=== PATIENT | male | born 1980 | race Caucasian/White ===

== ENCOUNTER 2019-09-11 19:25 | Emergency (ER) | payer SELFPAY ==
[2019-09-11 19:28] VITALS: BP 141/91; PULSE 110; RESP 18; TEMP 36.4; O2SAT 96; BMI 26.7
--- NOTE | 2019-09-11 19:41 | ED.DCSUM_ITS ---
History of Present Illness Chief Complaint: Back Informant: Patient Onset: Month(s) - 1 month Context: Gradual Onset Current Severity: Mild Maximum Severity: Moderate Narrative: Patient present secondary to back pain with radiation down his right leg. Approximately 10 years ago he had an L4-5 fusion by Prasanna Milan at [facility]. Patient states he will have intermittent flares of pain. Approximate 1 month ago he noted some back tightness after adjusting his position in a chair. There was no fall or direct injury. Since that time he continues to have symptoms of sciatica with pain rating down the lateral thigh to his ankle. He has had some numbness and tingling. He states his been taking Tylenol intermittently. He does not have a primary care physician. He lives in [place] and is here visiting his family. - Past Medical History (1) Fusion of lumbar spine Status: Chronic Past Medical History - Allergies and Home Meds Allergies/Adverse Reactions: Allergies amoxicillin Allergy (Verified 09/11/19 19:27) Rash Penicillins [PCN] Allergy (Verified 09/11/19 19:27) Rash Sulfa (Sulfonamide Antibiotics) Allergy (Verified 09/11/19 19:27) Rash Primary Care Physician: Care Physician,No Primary [Primary Care Provider] - Prior records reviewed: Yes Smoking Status: Current every day smoker Review of Systems General: Denies: Chills, Fever Eyes: Denies: Visual changes - bilaterally ENT: Denies: Bilateral ear pain Cardiovascular: Denies: Chest pain Respiratory: Denies: Dyspnea, Cough Gastrointestinal: Denies: Abdominal pain, Nausea, Vomiting, Diarrhea Musculoskeletal: Reports: Back pain, Extremity Pain Neurological: Reports: Parasthesia. Denies: Headache, Weakness Endocrine: Denies: Polyuria, Polydipsia Hematologic: Denies: Easy bruising Allergy: Denies: Uticaria Physical Exam Vital Signs/Narrative: Vital Signs Temp Pulse Resp BP Pulse Ox 09/11/19 19:28 97.5 F L 110 H 18 141/91 H 96 Inital Vital Signs reviewed: Yes General: Well nourished, Well developed Head: Normocephalic ENT: Moist mucous membranes Neck: Supple Cardiovascular: Regular rate, Regular rhythm Respiratory: No distress, CTA bilaterally Abdomen: Soft, Nontender, No masses Back: - - Reproducible tenderness in the right low lumbar paraspinal muscles and over the sciatic notch. No midline thoracic or lumbar tenderness. Extremities: Nontender - No reproducible tenderness., No edema Skin: Normal color, No rash Neurological: Alert, Oriented x3, Normal Strength, Normal Sensation, - - Strong and equal distal pulses. 1+ bilateral patellar reflexes. Psychological: Normal affect Diagnostic/Tx/Re-eval Impressions Lumbar Spine X-Ray 09/11/19 19:45 IMPRESSION: Posterior spinal fusion with rods and interpeduncular screws from L4 to S1. There are disc spacers at the L4-5 and L5-S1 levels. There are status post laminectomy changes of L4 and L5. Electronically Signed: Diomedes Addison MD at 20:17 EDT , Service support , 09/11/19 19:45 Lumbar Spine 2 or 3 Views [RAD] Stat - Medical Decision Making Patient was given naproxen, prednisone, Flexeril, and [place] here. Test results are discussed with him. I did do an oars report. Patient's last narcotic prescription was from March 2018. He will be given prescriptions for the same meds he was given here. He will follow-up with one of his local doctors in [place]. ED Disposition - Plan for ED Patient: Disposition: Home or Assisted Living Diagnosis: Sciatica Instructions: BACK PAIN w/ SCIATICA Prescriptions: Prednisone [Deltasone] 40 mg PO DAILY #10 tab Transmission Status: Pending to [id number] cycloBENZAPRine HCl [Flexeril] 10 mg PO TID PRN #20 tab PRN Reason: Muscle Spasm Transmission Status: Pending to [id number] Naproxen [Naprosyn] 500 mg PO BID PRN #20 tab Transmission Status: Pending to [id number] Hydrocodone Bitart/Apap 5-325 [[place] 5MG-325MG] 1 tablet PO Q6H PRN PRN 3 Days #10 tablet PRN Reason: Pain Transmission Status: Received by [id number]
--- NOTE | 2019-09-11 19:45 | RAD_ITS ---
STUDY: X-RAY - LUMBAR SPINE REASON FOR EXAM: Male, 39 years old. PT C/O LOWER BACK PAIN RADIATING DOWN RIGHT LEG WITH NUMBNESS AND TINGLING. NKI. HX OF LUMBAR FUSION L4/5 10 YEARS AGO. TECHNIQUE: 3 view(s) of the lumbar spine were obtained. COMPARISON: None FINDINGS: Normal lumbar lordosis. There is no substantial scoliosis. There is a normal alignment of the vertebrae. There are posterior spinal fusion changes with rods and interpeduncular screws from L4 to S1. Disc spacers are present at the L4-5 and L5-S1 levels. There is multi-level degenerative disc disease with multi-level disc space narrowing. There is status post laminectomy changes of L4 and L5. The soft tissue structures are unremarkable. RAD/Lumbar Spine 2 or 3 Views IMPRESSION: Posterior spinal fusion with rods and interpeduncular screws from L4 to S1. There are disc spacers at the L4-5 and L5-S1 levels. There are status post laminectomy changes of L4 and L5. Electronically Signed: Diomedes Addison MD at 20:17 EDT , Service support ,
[2019-09-11] MEDS: Naproxen 500 MG Tablet PO (19:46)
[2019-09-11] MEDS: cycloBENZAPRine HCl 10 MG Tablet PO (19:46)
[2019-09-11] MEDS: predniSONE 20 MG Tablet 60 MG PO (19:46)
[2019-09-11] MEDS: HYDROcodone Bitartrate/Apap 5/325 Tablet PO (19:47)
[2019-09-11 20:28] VITALS: BP 128/95; PULSE 80; RESP 15; O2SAT 96
== END 2019-09-11 20:34 | disposition home or self-care (01) ==
PROVIDERS: Emergency Provider Emergency Medicine
DX: M54.41 Lumbago with sciatica, right side (principal); F17.200 Nicotine dependence, unspecified, uncomplicated
CPT/HCPCS: 72100; 99283